=== PATIENT | female | born 2005 | race Caucasian/White ===

== ENCOUNTER 2025-02-19 08:11 | Emergency (ER) | payer OTHER ==
[~2025-02-19] VITALS: Ht 180.3 cm; Wt 57.7 kg
--- NOTE | 2025-02-19 08:47 | ED.PDOC ---
Eye-HPI HPI Comments A 20 year-old female presents to the ED with a chief complaint of light headedness as of today. Patient reports having swollen tonsils with associated drainage, N/D, fever, and throat pain for X2 weeks prior to being diagnosed with strep throat at [facility] on 02/17. Patient reports taking Amoxicillin for Strep Throat and is on day 3 of antibiotics. Patient has no further complaints at this time and otherwise denies further associated symptoms of emesis, dysuria, headache, chest pain, or palpitations. Denies chest pain shortness of breath Denies inability to move neck, history of meningitis Denies difficulty swallowing nor persistent salivation Denies persistent cough, runny nose, congestion Denies loss of appetite, unintentional weight loss over the past 3 months Denies voice changes Chief Complaint: Lightheadedness Time Seen by MD: 08:33 Reviewed Notes: Nurses Notes, Medications, Allergies Allergies: Coded Allergies: NO KNOWN ALLERGIES (Unverified , 02/19/25) Information Source: Patient Mode of Arrival: Ambulatory Timing: Hours Duration: Since onset Prehospital treatment: None Quality: Pain Mouth Location: Lips (Lower ) Onset: Spontaneous Last Tetanus: UTD Modifying factors: Nothing Associated signs and symptoms: Discharge, Other (Lip Pain and Swelling ) Past Medical History PAST MEDICAL HISTORY: Denies Surgical History: Denies all surgeries DIGITAL PUBLISHING SPECIALIST History: No Pertinent DIGITAL PUBLISHING SPECIALIST History Family History Family History: Reviewed,noncontributory to illness, No family hx of Cancer, No family hx of DM, No family hx of Heart radha, No family hx of HTN, No family hx ofKidney radha, No family hx of Liver radha, No family hx of Lung radha, No family hx of Stroke Social History Smoker: Non-Smoker Alcohol: Denies ETOH Use Drugs: Denies Drug Use Lives In: Home Constitutional: denies: chills, diaphoresis, fatigue, fever, malaise, sweats, weakness, others EENTM: reports: others (PER HPI ); denies: blurred vision, double vision, ear bleeding, ear discharge, ear drainage, ear pain, ear ringing, eye pain, eye redness, hearing loss, mouth pain, mouth swelling, nasal discharge, nose bleeding, nose congestion, nose pain, photophobia, tearing, throat pain, throat swelling, voice changes Respiratory: denies: cough, hemoptysis, orthopnea, SOB at rest, shortness of breath, SOB with excertion, stridor, wheezing, others Cardiovascular: denies: chest pain, dizzy spells, diaphoresis, Dyspnea on exertion, edema, irregular heart beat, left arm pain, lightheadedness, palpitations, PND, syncope, others Gastrointestinal: denies: abdomen distended, abdominal pain, blood streaked bowels, constipated, diarrhea, dysphagia, difficulty swallowing, hematemesis, melena, nausea, poor appetite, poor fluid intake, rectal bleeding, rectal pain, vomiting, others Genitourinary: denies: abnormal vagina bleeding, burning, dyspareunia, dysuria, flank pain, frequency, hematuria, incontinence, pain, , vagina discharge, urgency, others Neurological: reports: others (Lightheaded ); denies: dizziness, fainting, headache, left sided numbness, left sided weakness, numbness, paresthesia, pre- existing deficit, right sided numbness, right sided weakness, seizure, speech problems, tingling, tremors, weakness Musculoskeletal: denies: back pain, gout, joint pain, joint swelling, muscle pain, muscle stiffness, neck pain, others Integumetry: denies: bruises, change in color, change in hair/nails, dryness, laceration, lesions, lumps, rash, wounds, others Allergic/Immunocompromised: denies: Difficulty Healing, Frequent Infections, Hives, Itching, others Hematologic/Lymphatic: denies: anemia, blood clots, easy bleeding, easy bruising, swollen glands, others Endocrine: denies: excessive hunger, excessive sweating, excessive thirst, excessive urination, flushing, intolerance to cold, intolerance to heat, unexplained weight gain, unexplained weight loss, others Psychiatric: denies: anxiety, bipolar disorder, depression, hopeless, panic disorder, schizophrenia, sleepless, suicidal, others All Other Systems: Reviewed and Negative Physical Exam General Appearance: No Apparent Distress, Normal HEENT: Normal ENT Inspection, Pharynx Normal, Tonsillar Exudate (Bilateral ), Other (Uvula Midline no airway obstructure; MMM ) Neck: Full Range of Motion, Non-Tender, Normal, Normal Inspection Respiratory: Chest Non-Tender, Lungs Clear, No Accessory Muscle Use, No Respiratory Distress, Normal Breath Sounds Cardiovascular: No Edema, No JVD, No Murmur, No Gallop, Normal Peripheral Pulses, Regular Rate/Rhythm Breast Exam: Deferred Gastrointestinal: No Organomegaly, Non Tender, No Pulsatile Mass, Normal Bowel Sounds, Soft Genitalia: Deferred Pelvic: Deferred Rectal: Deferred Extremities: No calf tenderness, Normal capillary refill, Normal inspection, Normal range of motion, Non-tender, No pedal edema Musculoskeletal : Apperance: Normal Neurologic: Alert, 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 Was a procedure done?: No EENT DIFF Eye: Other Sore Throat: Pharyngitis, Streptococcal, Viral Pharyngitis, Other (Foreign Body ) X-Ray, Labs, Meds, VS Vital Signs Date Time Temp Pulse Resp B/P (MAP) Pulse Ox O2 Delivery O2 Flow Rate FiO2 02/19/25 10:11 98.2 73 17 106/62 (77) 98 98.2 02/19/25 10:11 73 17 98 Room Air 02/19/25 08:26 98.4 99 17 115/73 (87) 98 98.4 Lab Test 02/19/25 08:43 02/19/25 08:26 Range/Units White Blood Count 8.1 4.4-10.8 10^3/uL Red Blood Count 4.92 4.0-5.20 10^6/uL Hemoglobin 13.9 12.2-16.2 g/dL Hematocrit 40.5 36.0-46.0 % Mean Corpuscular Volume 82.2 80.0-100.0 fL Mean Corpuscular Hemoglobin 28.3 28.0-32.0 pg Mean Corpuscular Hemoglobin Concent 34.4 32.0-36.0 g/dL Red Cell Distribution Width 14.4 H 11.8-14.3 % Platelet Count 163 140-450 10^3/uL Mean Platelet Volume 8.8 6.9-10.8 fL Neutrophils (%) (Auto) 65.9 37.0-80.0 % Lymphocytes (%) (Auto) 22.7 10.0-50.0 % Monocytes (%) (Auto) 10.8 0.0-12.0 % Eosinophils (%) (Auto) 0.1 0.0-7.0 % Basophils (%) (Auto) 0.5 0.0-2.0 % Neutrophils # (Auto) 5.4 1.6-8.6 10 ^3/uL Lymphocytes # (Auto) 1.8 0.4-5.4 10 ^3/uL Monocytes # (Auto) 0.9 0-1.3 10 ^3/uL Eosinophils # (Auto) 0 0-0.8 10 ^3/uL Basophils # (Auto) 0 0-0.2 10 ^3/uL Nucleated Red Blood Cells 0.1 % Sodium Level 140 136-145 mmol/L Potassium Level 4.5 3.5-5.1 mmol/L Chloride Level 106 98-107 mmol/L Carbon Dioxide Level 25 20-31 mmol/L Anion Gap 9 5-15 Blood Urea Nitrogen 6 L 9-23 mg/dL Creatinine 0.78 0.550-1.02 mg/dL Glomerular Filtration Rate Calc 110 >90 mL/min BUN/Creatinine Ratio 7.7 L 10.0-20.0 Serum Glucose 108 H 74-106 mg/dL Calcium Level 10.2 8.7-10.4 mg/dL Urine Color Dark yellow Yellow Urine Clarity Ex.turbid Clear Urine pH 5.5 5.0-9.0 Urine Specific Wolf 1.022 1.001-1.035 Urine Protein Trace H Negative Urine Ketones 1+ H Negative Urine Blood Negative Negative /uL Urine Nitrite Negative Negative Urine Bilirubin Negative Negative Urine Urobilinogen Normal Negative mg/dL Urine Leukocyte Esterase 1+ Negative /uL Urine RBC None seen 0 - 4 /hpf Urine Microscopic WBC 0-5 /HPF Urine Squamous Epithelial Cells Mod <5 /hpf Urine Amorphous Crystals Mod None Seen /hpf Urine Bacteria None seen None Seen /hpf Urine Glucose Normal Normal mg/dL Group A Streptococcus Rapid Negative X-Ray, Labs, Meds, VS Comment A 20 year-old female presents to the ED with a chief complaint of lightheadedness as of today. Patient arrives alert and oriented, ABC's intact, afebrile, vital signs stable, saturating well in room air CBC was ordered to exclude anemia, blood loss, or infection. BMP was ordered to exclude electrolyte abnormalities, renal failure, dehydration, hyperglycemia. Urinalysis was ordered to rule out UTI or hematuria. Exam/test findings consistent with strep throat infection. Advised to complete full course of prescribed antibiotics Encouraged fluid intake Acetaminophen to reduce pain/fever NSAIDs to reduce pain/fever Nonpharmacological recommendations given Warm salt water gargles Throat lozenges Humidified air Return precautions given Worsening pain Fevers past 48 hours after antibiotics Any neck pain, headache, vision issues, or other concerns Patient is stable for discharge at this time. External notes reviewed. Test results and diagnostic imaging interpreted. All diagnostic findings, discharge care, education and instructions provided Follow-up with PCP in 2 to 3 days Patient verbalized understanding and agreed to treatment plan Vital signs stable, afebrile, no acute distress noted Patient ambulatory with strong steady gait Advised to return precautions for any new or worsening symptoms, return to ER immediately for re-evaluation Patient is aware that the purpose of this visit was for an acute medical emergency requiring emergent stabilization. Chronic conditions, including malignancies have not been ruled out. Patient is instructed to follow up with PCP as directed and discharge instructions for continued care and workup. If unable to arrange follow-up, patient is to return to the emergency department for reassessment. Patient (parent or legal guardian if applicable) was given verbal and written discharge instructions and acknowledges understanding. Time of 1ST Reevaluation: 09:31 Reevaluation 1ST: Unchanged Time of 2ND Reevaluation: 11:05 Reevaluation 2ND: Improved Patient Education/Counseling: Diagnosis, Treatment Family Education/Counseling: No Family Present Medical Screening: No EMC Exist At This Time SEPSIS Sepsis Screen Physician Orders Urine (02/19/25 ) Test, Urine (02/19/25 10:33) Vital Signs Date Time Temp Pulse Resp B/P (MAP) Pulse Ox O2 Delivery O2 Flow Rate FiO2 02/19/25 10:11 98.2 73 17 106/62 (77) 98 98.2 02/19/25 10:11 73 17 98 Room Air 02/19/25 08:26 98.4 99 17 115/73 (87) 98 98.4 Laboratory Tests Test 02/19/25 08:43 White Blood Count 8.1 10^3/uL (4.4-10.8) Departure 1 Departure Time of Disposition: 11:07 Impression: Primary Impression: Strep throat Disposition: 01 HOME / SELF CARE / HOMELESS Condition: Stable Discharged With: Self Critical Care Note Critical Care Time?: No Stability Stability form required: No Heart Score Heart Score: Heart Score Response (Comments) Value History N/A 0 EKG N/A 0 Age N/A 0 Risk Factors N/A 0 Troponin N/A 0 Total 0 I personally scribed for KYM SPEAR CLASSROOM MONITOR ([email or web address]) on 02/19/25 at 08:47. Electronically submitted by Dania Mishra ([employer]). I personally scribed for KYM SPEAR CLASSROOM MONITOR ([email or web address]) on 02/19/25 at 08:48. Electronically submitted by Dania Mishra ([employer]). I personally scribed for KYM SPEAR CLASSROOM MONITOR ([email or web address]) on 02/19/25 at 10:20. Electronically submitted by Dania Mishra ([employer]). I personally scribed for KYM SPEAR CLASSROOM MONITOR ([email or web address]) on 02/19/25 at 10:26. Electronically submitted by Dania Mishra ([employer]). KYM SPEAR NP Feb 19, 2025 08:47
[2025-02-19 09:01] LABS: Hematocrit 40.5 % (36.0-46.0); Hemoglobin 13.9 g/dL (12.2-16.2); Mean Corpuscular Hemoglobin 28.3 pg (28.0-32.0); Mean Corpuscular Volume 82.2 fL (80.0-100.0); Nucleated Red Blood Cells % 0.1 %
[2025-02-19 09:09] LABS: Chloride 106 mmol/L (98-107); Potassium 4.5 mmol/L (3.5-5.1); Sodium 140 mmol/L (136-145)
[2025-02-19 09:10] LABS: Anion Gap 9 (5-15); Calcium 10.2 mg/dL (8.7-10.4); Carbon Dioxide 25 mmol/L (20-31)
[2025-02-19 09:12] LABS: Rapid Strep A Screen-Throat Negative
[2025-02-19 09:15] LABS: BUN/Creatinine Ratio 7.7 (10.0-20.0)
[2025-02-19 09:21] LABS: Blood Urea Nitrogen 6 mg/dL (9-23); Glucose 108 mg/dL (74-106)
[2025-02-19 10:05] LABS: Urine Amorphous Crystal MOD /hpf (None Seen); Urine Protein, UAD TRACE (Negative)
[2025-02-19 10:11] VITALS: BP 106/62; PULSE 73; RESP 17; TEMP 98.2; O2SAT 98
== END 2025-02-19 11:25 | disposition home or self-care (01) ==
LOC: ER 08:11
DX: J02.0 Streptococcal pharyngitis (principal); Z79.899 Other long term (current) drug therapy
CPT/HCPCS: 36415; 80048; 81001; 81025; 85025; 87070; 87880